=== PATIENT | male | born 1975 | race Two or more races ===

== ENCOUNTER 2019-04-01 04:57 | Day surgery (SDC) | payer OTHER ==
[2019-03-31 11:32] VITALS: BMI 26.4
[2019-04-01] MEDS ORDERED: ROPIVACAINE HCL 0.5% 30ML VIAL ONE (10:10)
[2019-04-01] MEDS ORDERED: DEXAMETHASONE SOD PHOSPHATE/PF 10 MG/ML SDV ONE (10:10)
[2019-04-01] MEDS ORDERED: MIDAZOLAM HCL 2 MG/2 ML SINGLE DOSE VIAL ONE ×2 (10:16)
[2019-04-01 10:29] VITALS: TEMP 97.8
[2019-04-01] MEDS ORDERED: LIDOCAINE HCL 1%, 10 MG/ML (20ML VIAL) ONE (11:19)
[2019-04-01] MEDS ORDERED: BENZOIN/ALOE VERA/STORAX/TOLU 58 ML BOTTLE ONE (11:19)
--- NOTE | 2019-04-01 11:43 | HP ---
History & Physical Update - History History: No Change - Physical Physical: No Change - Assessment Assessment: No Change - Plan Plan: No Change (for open repair right inguinal hernia w/mesh; r/b/t/a's d/w the patient and informed consent obtained.)
[2019-04-01] MEDS ORDERED: ceFAZolin SODIUM 1 GM VIAL ONE (11:51)
[2019-04-01] MEDS ORDERED: LIDOCAINE HCL/PF 2% SDV 5ML VIAL ONE (11:51)
[2019-04-01] MEDS ORDERED: PROPOFOL 20 ML ONE (11:52)
[2019-04-01] MEDS ORDERED: ceFAZolin SODIUM 1 GM VIAL IVPB ONE (12:06)
[2019-04-01] MEDS ORDERED: DEXAMETHASONE SOD PHOSPHATE 4 MG/1 ML VIAL ONE (12:25)
[2019-04-01] MEDS ORDERED: LIDOCAINE HCL 1%, 10 MG/ML (20ML VIAL) NR ONE (12:56)
[2019-04-01] MEDS ORDERED: BUPIVACAINE HCL/PF 0.5% (5 MG/ML) 30 ML VIAL IJ ONE (12:56)
[2019-04-01] MEDS ORDERED: IBUPROFEN 800 MG/8 ML IJ IVPB PRN (13:19)
[2019-04-01] MEDS ORDERED: ONDANSETRON 4 MG/2 ML VIAL IVPUSH PRN (13:19)
[2019-04-01] MEDS ORDERED: oxyCODONE HCL 5 MG TABLET PO PRN (13:19)
[2019-04-01] MEDS ORDERED: LACTATED RINGERS SOLUTION 1,000 ML IV SCH (13:30)
--- NOTE | 2019-04-01 13:30 | OP ---
Operative Note - Note: Operative Date: 04/01/19 Pre-Operative Diagnosis: right inguinal hernia Operation: open repair right inguinal hernia w/mesh Findings: indirect RIH Post-Operative Diagnosis: Same as Pre-op Surgeon: Juan Daniel Marin Tape Keller Operator: Leah Knott Anesthesiologist/PROPOSAL CONSULTANT: Fabian Arellano Anesthesia: General Specimens Removed: hernia sac Estimated Blood Loss (mls): 10
[2019-04-01] MEDS ORDERED: IBUPROFEN 800 MG/8 ML IJ IVPB ONE (13:35)
[2019-04-01 19:08] VITALS: BP 119/77; PULSE 65
--- NOTE | 2019-04-05 14:52 | PATH ---
Surgical Pathology Report Patient Name: ELIZABETH COLIN Med. Rec. #: [id number] /Age/Gender: 1975 (Age: 43) / M Account: [id number] Location: [facility] SURGICAL Taken: 04/01/2019 Received: 04/04/2019 Reported: 04/05/2019 Physicians: Juan Daniel Marin MD Specimen(s) Received HERNIA SAC Clinical History Right inguinal hernia Final Diagnosis HERNIA SAC, RIGHT, OPEN INGUINAL HERNIA REPAIR WITH MESH: HERNIA SAC. Electronically Signed Sumi Ladd M.D. Gross Description Received in formalin labeled "hernia sac," is a 4.5 x 1.5 x 0.8 cm holguin-fernandez, irregular portion of fibromembranous tissue, consistent with a hernia sac. Pottery Machine Operator sections are submitted in one cassette. DL/04/04/2019 saudi/04/04/2019
--- NOTE | 2019-04-21 14:34 | OP ---
DATE OF OPERATION: 04/01/2019 PREOPERATIVE DIAGNOSIS: Right inguinal hernia. POSTOPERATIVE DIAGNOSIS: Right inguinal hernia. PROCEDURE: Open repair, right inguinal hernia, with mesh. SURGEON: Juan Daniel Marin MD [employer]LE BPM DEVELOPER: Leah Knott PA-C ANESTHESIA: General. OPERATIVE FINDINGS: There was an indirect right inguinal hernia. The rest of the findings were unremarkable. PROCEDURE: The patient was placed on the operating table in supine position. After induction of general anesthesia, the patient's right lower abdomen and groin were prepped with ChloraPrep and draped in sterile fashion. A timeout was taken and a right groin skin crease incision was mapped out. The area was infiltrated with 1% Xylocaine and 0.5% Marcaine in equal concentration. Incision was made with a scalpel and taken down through skin and subcutaneous tissue and Mare's fascia. The external oblique fascia was identified and opened proximally and distally in the direction of its fibers including the external ring. The cord structures and nerve were elevated to the level of the pubic tubercle and a [place] drain placed around them for retraction and identification purposes. Dissection was begun in the cord substance using blunt dissection, where an indirect hernia sac was identified. The sac was dissected from the cord structures up to the internal ring. The contents of the sac were empty and a high ligation was carried out with 2-0 Vicryl suture. Redundant sac was excised and sent for pathological examination. The floor of the inguinal canal was then repaired using Parietex ProGrip mesh, which was fashioned into the defect. It was anchored at the pubic tubercle, shelving edge, and conjoined tendon respectively with interrupted 2-0 Prolene. A keyhole was created for the cord structures and the tails of the mesh brought above the level of the internal ring, crossed, and anchored there with interrupted 2-0 Prolene. The tails of the mesh were tucked under the proximal external oblique fascia. Hemostasis was checked for and noted to be good and copious irrigation was carried out with normal saline. The cord structures and nerve were returned to their normal anatomic position and then hemostasis verified again. The external oblique fascia was closed over the cord structures, recreating the external ring, using continuous 2-0 Vicryl. Mare' s fascia was reapproximated with interrupted 2-0 Vicryl, the deep dermis with interrupted 3-0 Vicryl, and the skin edges with 4-0 Monocryl in a subcuticular continuous fashion. Steri-Strips and dry sterile dressings were placed and the procedure terminated at this point and the patient aroused from general anesthesia and transferred to the post-anesthesia care unit in stable condition, awake and alert. Estimated blood loss 10 mL. Replacement: Crystalloid. Drains: None. Specimen: Hernia sac to Pathology. I, Juan Daniel Marin, was physically present in the operating room from the time the patient was placed on the operating table until he was transferred to the post-anesthesia care unit in [place]. MD JOHN Whitfield/[id number] MTDD
== END 2019-04-01 17:40 | disposition home or self-care (01) ==
LOC: JASU-SURG 04:57
PROVIDERS: ATTEND Surgery
PROC: 0YU60JZ Supplement Left Inguinal Region with Synthetic Substitute, Open Approach (ICD-10-PCS; principal; 2019-04-01 12:00)
DX: K40.90 Unilateral inguinal hernia, without obstruction or gangrene, not specified as recurrent (principal)
CPT/HCPCS: 88302-TC; 94760

== ENCOUNTER 2021-12-13 04:15 | Day surgery (SDC) | payer OTHER ==
[2021-12-06 14:18] VITALS: BMI 12.0
[2021-12-13] MEDS ORDERED: TRIAMCINOLONE ACET 40MG/1ML VIAL ONE ×2 (07:35→12:44)
[2021-12-13] MEDS ORDERED: LIDOCAINE HCL/PF 1% SDV 5ML VIAL ONE (07:36)
[2021-12-13] MEDS ORDERED: BUPIVACAINE HCL/PF 0.5% (5MG/ML) 10 ML VIAL ONE (07:36)
[2021-12-13] MEDS ORDERED: BUPIVACAINE HCL/PF 0.5% (5 MG/ML) 30 ML VIAL IJ ONE (13:02)
[2021-12-13] MEDS ORDERED: LIDOCAINE 1% P/F 10 MG/ML VIAL INF ONE (13:02)
[2021-12-13] MEDS ORDERED: TRIAMCINOLONE ACETONIDE 40 MG/ML 10 ML VIAL NR ONE (13:02)
[2021-12-13 14:54] VITALS: BP 127/81; PULSE 63; RESP 20; TEMP 98.3
== END 2021-12-13 13:45 | disposition home or self-care (01) ==
LOC: JASU-SURG 04:15
PROVIDERS: ATTEND Pain Medicine Pain Medicine
PROC: 3E0U3BZ Introduction of Anesthetic Agent into Joints, Percutaneous Approach (ICD-10-PCS; 2021-12-13)
PROC: 3E0U33Z Introduction of Anti-inflammatory into Joints, Percutaneous Approach (ICD-10-PCS; principal; 2021-12-13 11:30)
DX: M53.3 Sacrococcygeal disorders, not elsewhere classified (principal)
CPT/HCPCS: 76000-TC-FY